=== PATIENT | female | born 1990 | race Caucasian/White ===

== ENCOUNTER → 2017-10-31 | Outpatient (CLI) | payer OTHER | END | disposition home or self-care (01) | LOC: C.LABSPEC 10:57 | PROVIDERS: ATTEND Physician Assistant | DX: N94.10 Unspecified dyspareunia (principal) ==

== ENCOUNTER → 2017-10-31 | Outpatient (CLI) | payer OTHER | END | disposition home or self-care (01) | LOC: C.PAPS 09:18 | PROVIDERS: ATTEND Physician Assistant | DX: Z12.4 Encounter for screening for malignant neoplasm of cervix (principal) ==

== ENCOUNTER 2024-05-24 03:19 | Inpatient (IN) ==
[2024-05-24] MEDS ORDERED: LIDOCAINE 1% LOCAL 20 ML VIAL INFIL PRN (06:16)
[2024-05-24] MEDS ORDERED: ACETAMINOPHEN 325 MG TAB PO PRN ×2 (06:16→23:46)
[2024-05-24] MEDS ORDERED: OXYTOCIN 30 UNITS/NSS 30 UNITS/500 ML BAG IV PRN ×2 (06:16→23:46)
--- NOTE | 2024-05-24 06:18 | History & Physical Report ---
Date of Service May 24, 2024 Assessment & Plan (1) Group B streptococcal infection during : (2) with 38 completed weeks gestation: (3) Normal labor: Plan admit, start gbs pprophylaxis, epidural now as very uncomfortable. plan arom /pit as indicated. anticipate . fetus category one. History of Present Illness Chief Complaint: painful contractions Primary Care Provider: Jhoana Montanez MD Patient is a 33yowf with iup at 38 1/7 weeks who presents to labor and delivery with painful contractions. Notes 05/28. no lof/vb. +fm. and Delivery Plans uses medical MJ occasionally for anxiety--last used 9pm last night. GBS Positive *Treat in labor OB Labs: Blood Type A Positive 10/28/23 Antibody Screen NEGATIVE 10/28/23 Hgb 10.3 g/dl (12.0-16.0) L 03/16/24 Hct 32.4 % (37.0-47.0) L 03/16/24 MCV 88.2 fL (80.0-100.0) 10/28/23 Plt Count 343 K/uL (130-400) 10/28/23 Rubella IgG Antibody Immune (Immune) 10/28/23 RPR Nonreactive (Nonreactive) 10/28/23 Hep Bs Antigen NON-REACTIVE (NON-REACTIVE) 10/28/23 Hepatitis C Ab (EIA) NON-REACTIVE (NON-REACTIVE) 10/28/23 HIV (1&2) Ag & Ab Conf NON-REACTIVE (NON-REACTIVE) 10/28/23 Glucose 1 Hr 50 gm 127 mg/dl (70-130) 03/16/24 OB Optional Labs: Chlamydia trachomatis RNA Not Detected (NotDetected) 10/28/23 Neisseria gonorrhoeae RNA Not Detected (NotDetected) 10/28/23 Labs Reviewed: Declines carrier screening--mln gbs positive Allergies Allergy/AdvReac Type Severity Reaction Status Date / Time prednisone Allergy Mild over 10 Verified 05/18/24 09:03 yrs ago - chest tight and heart racing Home Medications Medication Instructions Recorded Confirmed Type PNV no.[id number] PO 10/21/23 05/18/24 History [ Gummies] famotidine 40 mg tablet 40 mg PO HS PRN heartburn #30 tabs 03/27/24 05/18/24 Rx ferrous sulfate 325 mg (65 mg 325 mg PO DAILY 03/27/24 05/18/24 History iron) tablet,delayed release pantoprazole 40 mg tablet,delayed See Rx Instructions PO DAILY #90 03/27/24 05/18/24 Rx release tabs buspirone 10 mg tablet 10 mg PO BID #60 tabs 04/22/24 05/18/24 Rx Patient History Medical History History of chicken pox Termination of History of COVID-19 10/03/2022-home test- congestion, fatigue, body aches; resolved 07/2022- congestion , fatigue Sep 07, 2021 > home test > sore throat, congestion, headache, fatigue Anxiety no meds 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 Irregular heart beat has not seen cardio for a while > plans for follow up in future Surgical History History of dilatation and curettage x2 History of colonoscopy Hx of 03/2020 History of placement of ear tubes S/P tonsillectomy [place] teeth extracted Family History Mother Irregular heart beat Hypertension Grandmother (Maternal) Breast cancer Family/Other Ovarian cancer maternal great grandmother Father Hypertension Denies family history of Colorectal cancer Social History Smoking Status: Never smoker Second Hand Exposure: No; Do You Dip or Chew Tobacco: No; Hx Alcohol Use: Yes Alcohol type: beer, wine and hard liquor Hx Substance Use: Yes Last Used Substance: Hours (ago) Last Used Substance Other:: last used around 2100 05/23 Substance Use Type Other:: medical MJ Preferred Language: Welsh Communication Ability: Effective Visual Impairment: No Limitations Platform Software Engineer Required: No Beliefs That Will Affect Care: None marital status: Single marital status details: sil Beverly [phone]) [phone] Current Living Situation: Family and Significant Other Current Living Situation Comment: fiance and two kids current occupational status: employed current occupation: [employer] Other Information That Helps Us Care for You: No Feels Safe at Home: Yes Safety Concerns: Feels Safe At This Time Assistive Devices: None OB History Past Pregnancies Del. Date GA wks Lbr Lgth wt Sex Type del Anes Place Del Prov ? Comment 03/25/20 Aborted-Elective [employer]FIN[employer] History noncontributory Physical Exam Constitutional: WD/WN, vitals as above Gastrointestinal (Abdomen): soft, gravid, nt Psychiatric: A+Ox3, euthymic affect Genitourinary: cx--1.5/80/0 to 3.5/100/0 over observation toco--q2-4min efm--120s with mod variability, accels present, no decels Results & Data Vital Signs (Past 12 Hours) Vital Signs Temp Pulse Resp BP 05/24/24 03:51 76 133/81 05/24/24 03:34 16 05/24/24 03:25 18 05/24/24 03:25 36.7 C 18 Coding Level of Care Code None Diagnoses Group B streptococcal infection during O98.819; B95.1 with 38 completed weeks gestation Z3A.38 Normal labor O80; Z37.9
[2024-05-24] MEDS: LACTATED RINGER'S 1,000 ML IV PRN (06:28)
[2024-05-24] MEDS: PENICILLIN GK 6 MU in DEXTROSE 5% 250 ML IV STA (06:38)
[2024-05-24 07:33] LABS: Hematocrit (blood only) 39.5 % (37.0-47.0); Hemoglobin 12.8 g/dl (12.0-16.0); Mean Corpuscular Hgb Conc 32.4 g/dL (32.0-36.0); Mean Corpuscular Volume 92.5 fL (80.0-100.0); Mean Platelet Volume 11.7 fL (9.4-12.4); Platelet Count 209 K/uL (130-400); RDW Standard Deviation 50.6 fL (36.4-46.3); Red Blood Count 4.27 M/uL (4.20-5.40); White Blood Count 13.81 K/ul (4.8-10.8)
[2024-05-24 08:07] LABS: Amphetamines+Metham, Urine Neg (Neg); Barbiturates, Urine Neg (Neg); Benzodiazepine, Urine Neg (Neg); Cocaine, Urine Neg (Neg); Fentanyl, Urine Neg (Neg); MDMA (Ecstacy), Urine Neg (Neg); Marijuana, Urine Pos (Neg); Methadone, Urine Neg (Neg); Opiate, Urine Neg (Neg); Phencyclidine, Urine Neg (Neg)
--- NOTE | 2024-05-24 08:18 | Anesthesiology Consultation ---
Date of Service May 24, 2024 Assessment & Plan Chart Review Chart Review: Acceptable Risk for Surgery and Patient NOT seen in Pre Admission Testing Consults Requested none ASA ASA2 Proposed Anesthesia Anesthesia Type: Labor Epidural and CSE Risk / Benefits Reviewed With: PT / POA / Parent / Guardian, Accepts Plan and Informed Consent Obtained History Height/Weight Height: 5 ft 7 in Weight: 73.028 kg Allergies Allergy/AdvReac Type Severity Reaction Status Date / Time prednisone Allergy Mild over 10 Verified 05/18/24 09:03 yrs ago - chest tight and heart racing Medications Home Medications Medication Instructions Recorded Confirmed Last Taken PNV no.[id number] PO 10/21/23 05/18/24 05/23/24 07:00 [ Gummies] famotidine 40 mg tablet 40 mg PO HS PRN heartburn #30 tabs 03/27/24 05/24/24 05/22/24 21:00 ferrous sulfate 325 mg (65 mg 325 mg PO DAILY 03/27/24 05/24/24 05/23/24 21:00 iron) tablet,delayed release pantoprazole 40 mg tablet,delayed See Rx Instructions PO DAILY #90 03/27/24 05/24/24 05/23/24 07:00 release tabs buspirone 10 mg tablet 10 mg PO BID #60 tabs 04/22/24 05/24/24 05/23/24 21:00 Active Medications Generic Name Dose Route Start Last Admin Trade Name Freq PRN Reason Stop Dose Admin Lactated Ringer's 1,000 mls @ 125 mls/hr 05/24/24 06:16 05/24/24 06:28 Lr IV 05/26/24 06:15 999 mls/hr .Q8H PRN Administration L&D Protocol Protocol NPO Date Last Intake of Fluids: 05/24/24 Time Last Intake of Fluids: 07:00 Date Last Intake of Solids: 05/23/24 Time Last Intake of Solids: 19:00 Past Medical History Medical History History of chicken pox Termination of History of COVID-19 10/03/2022-home test- congestion, fatigue, body aches; resolved 07/2022- congestion , fatigue Sep 07, 2021 > home test > sore throat, congestion, headache, fatigue Anxiety no meds 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 Irregular heart beat has not seen cardio for a while > plans for follow up in future Exercise / Class Metabolic Activity II 4-5 Yardwork/Stairs/Walk up hill Past Family History Family History Mother Irregular heart beat Hypertension Grandmother (Maternal) Breast cancer Family/Other Ovarian cancer maternal great grandmother Father Hypertension Denies family history of Colorectal cancer Past Surgical History Surgical History History of dilatation and curettage x2 History of colonoscopy Hx of 03/2020 History of placement of ear tubes S/P tonsillectomy [place] teeth extracted Past Anesthesia History No Hx of Anesthesia Complications and No Family Hx of Anesthesia Complications History of PONV No Hx of PONV and No Hx of Motion Sickness Social History Smoking Status: Never smoker Do You Dip or Chew Tobacco: No Hx Alcohol Use: Yes Alcohol type: beer, wine and hard liquor alcohol intake frequency: a few times a month Hx Substance Use: Yes substance use type: marijuana and prescription drug Substance Use Type Other:: medical MJ Last Used Substance: Hours (ago) Last Used Substance Other:: last used around 2100 on 05/23 Physical Exam Vital Signs Last Vital Signs Temp 36.9 C 05/24/24 07:05 Pulse 87 05/24/24 08:11 Resp 20 05/24/24 07:05 BP 128/88 05/24/24 07:05 Pulse Ox 100 05/24/24 08:11 Constitutional + obese; no acute distress ENMT Mouth: no dentition abnormality Thyromental Distance: < 3.5 Finger Breadths Mallampati Class: II Neck normal visual inspection and trachea midline; neck extension not limited Respiratory normal respiratory effort Auscultation: lungs clear to auscultation bilaterally Cardiovascular Rate/Rhythm: regular rate and regular rhythm Heart Sounds: no murmur Vessels: no carotid bruit Musculoskeletal Spine: lumbar spine normal to inspection; normal cervical ROM and no pain with cervical ROM Extremities: full ROM of extremities Neurologic moves all extremities Motor/Sensory: no sensory deficit Psychiatric Orientation: alert and oriented x 3 Testing Laboratory Results 05/24/24 06:33
[2024-05-24] MEDS: ePHEDrine sulfate 50 MG/ML AMP ONE (08:38)
[2024-05-24] MEDS: fentaNYL citrate PF 100 MCG/2 ML VIAL ONE (08:39)
[2024-05-24] MEDS: LIDOCAINE 2%/EPINEPHRINE 1:200,000 20 ML PF ONE (08:39)
[2024-05-24] MEDS: BUPIVACAINE 0.25% PF 30 ML VIAL ONE (08:39)
[2024-05-24] MEDS ORDERED: BUPIVACAINE 0.25% PF 30 ML VIAL EPI PRN (08:43)
[2024-05-24] MEDS ORDERED: PROMETHAZINE 6.25 MG/50.25 ML BAG IV PRN (08:43)
[2024-05-24] MEDS ORDERED: NALBUPHINE HCL INJ 10 MG/ML AMP IV PRN (08:43)
[2024-05-24] MEDS ORDERED: NALOXONE HCL 0.4 MG/1 ML VIAL/CARP IV PRN (08:43)
[2024-05-24] MEDS ORDERED: NALOXONE HCL 1 MG in SODIUM CHLORIDE 0.9% 1,000 ML IV PRN (08:43)
[2024-05-24] MEDS ORDERED: SODIUM CHLORIDE 0.9% PF INJ 10 ML VIAL EPI PRN (08:43)
[2024-05-24] MEDS ORDERED: diphenhydrAMINE 50 MG/ML VIAL IV PRN (08:43)
[2024-05-24] MEDS ORDERED: ONDANSETRON INJ 2 MG/ML 2 ML VIAL IV PRN (08:43)
[2024-05-24] MEDS ORDERED: fentaNYL citrate PF 100 MCG/2 ML VIAL EPI PRN (08:43)
[2024-05-24] MEDS ORDERED: LIDOCAINE 2% MPF LOCAL 5 ML VIAL EPI PRN (08:43)
[2024-05-24] MEDS ORDERED: ePHEDrine sulfate 50 MG/ML AMP IV PRN (08:43)
[2024-05-24] MEDS ORDERED: ROPIVACAINE 0.5% PF 5 MG/ML 20 ML VIAL EPI PRN (08:43)
[2024-05-24] MEDS: fentANYL 2 MCG/ML BUPIVacaine 0.125%-NSS 100ML BAG ONE (08:47)
--- NOTE | 2024-05-24 09:07 | Labor Progress Brief Note ---
Date of Service May 24, 2024 Subjective comfortable after epidural Assessment & Plan (1) Normal labor: (2) with 38 completed weeks gestation: (3) Group B streptococcal infection during : Plan arom done, second dose pcn due at 10. fetus category one. anticipate . Admission and Anticipated Discharge Date Admission Date: May 24, 2024 Physical Exam Physical Exam: cx--4/100/-2 toco--q2-4min efm--130s with mod varaiability, accels to 160s, no decels arom--clear Results & Data Vital Signs (Past 12 Hours) Vital Signs Temp Pulse Resp BP Pulse Ox 05/24/24 09:02 99 05/24/24 09:02 102 H 05/24/24 09:02 94 H 116/75 05/24/24 09:01 103 H 92 05/24/24 08:57 89 99 05/24/24 08:56 86 101/64 05/24/24 08:55 91 H 92 05/24/24 08:52 99 H 99 05/24/24 08:51 86 102/65 05/24/24 08:49 99 H 103/72 05/24/24 08:47 100 05/24/24 08:47 94 H 05/24/24 08:47 90 100/69 05/24/24 08:45 90 97/60 L 05/24/24 08:43 83 104/56 L 05/24/24 08:42 74 100 05/24/24 08:41 89 99/58 L 05/24/24 08:40 20 05/24/24 08:40 20 05/24/24 08:39 93 H 102/55 L 05/24/24 08:38 102 H 133/60 05/24/24 08:37 107 H 20 91 05/24/24 08:35 96 H 82/58 L 90 05/24/24 08:33 107 H 119/67 05/24/24 08:32 111 H 97 05/24/24 08:31 92 H 118/72 05/24/24 08:27 99 H 98 05/24/24 08:22 101 H 100 05/24/24 08:18 89 149/90 H 05/24/24 08:17 93 H 99 05/24/24 08:11 87 100 05/24/24 08:06 91 H 96 10/06/24 08:05 89 92 05/24/24 08:01 88 100 05/24/24 07:56 91 H 98 05/24/24 07:52 97 H 92 05/24/24 07:51 93 H 96 05/24/24 07:46 94 H 97 05/24/24 07:41 78 100 05/24/24 07:36 80 99 05/24/24 07:35 83 92 05/24/24 07:31 88 100 05/24/24 07:26 92 H 100 05/24/24 07:20 94 H 100 05/24/24 07:15 84 97 05/24/24 07:10 89 99 05/24/24 07:05 36.9 C 83 20 128/88 100 05/24/24 07:00 91 H 100 05/24/24 06:55 85 100 05/24/24 06:50 98 H 100 05/24/24 06:46 78 135/83 05/24/24 06:45 84 100 05/24/24 03:51 76 133/81 05/24/24 03:34 16 05/24/24 03:25 18 05/24/24 03:25 36.7 C 18 Coding Level of Care Code None Diagnoses Normal labor O80; Z37.9 with 38 completed weeks gestation Z3A.38 Group B streptococcal infection during O98.819; B95.1
[2024-05-24] MEDS: PENICILLIN GK 3 MU in DEXTROSE 5% 100 ML IV PRN (10:21)
[2024-05-24] MEDS: PANTOprazole 40 MG TAB PO SCH (10:21)
[2024-05-24] MEDS: OXYTOCIN 30 UNITS/NSS 30 UNITS/500 ML BAG IV PRN (12:01)
[2024-05-24] MEDS: SODIUM CHLORIDE 0.9% PF INJ 10 ML VIAL ONE (13:29)
[2024-05-24] MEDS: fentaNYL citrate PF 100 MCG/2 ML VIAL EPI STA (13:29)
[2024-05-24] MEDS: BUPIVACAINE 0.25% PF 30 ML VIAL EPI STA (13:29)
[2024-05-24] MEDS: LIDOCAINE 2%/EPINEPHRINE 1:200,000 20 ML PF EPI STA (13:30)
[2024-05-24] MEDS: SODIUM CHLORIDE 0.9% PF INJ 10 ML VIAL EPI STA (13:30)
[2024-05-24] MEDS: CALCIUM CARBONATE 500 MG CHEWABLE TAB PO PRN (14:18)
--- NOTE | 2024-05-24 15:52 | Labor Progress Brief Note ---
Date of Service May 24, 2024 Subjective comfortable with epidural Assessment & Plan (1) Normal labor: (2) with 38 completed weeks gestation: (3) Group B streptococcal infection during : Plan has received adequate prophylaxis. iupc placed to better monitor contractions as not making rapid change but definitely made change since my last exam. fetus category two because of variables but overall very reassuring with good variabiltiy. Continue to monitor. Admission and Anticipated Discharge Date Admission Date: May 24, 2024 Physical Exam Physical Exam: cx--6-7/100/0 toco--q2-3 min, pit at 9 efm--130s wtih mod variability, onset of variables with contractions in the last hour or so iupc placed Results & Data Vital Signs (Past 12 Hours) Vital Signs Temp Pulse Resp BP Pulse Ox 05/24/24 15:48 104 H 86 L 05/24/24 15:47 101 H 99 05/24/24 15:42 91 H 84 L 05/24/24 15:39 86 107/56 L 05/24/24 15:37 95 H 99 05/24/24 15:32 89 100 05/24/24 15:29 93 H 94 05/24/24 15:27 87 100 05/24/24 15:24 18 05/24/24 15:24 36.9 C 18 05/24/24 15:22 92 H 120/75 100 05/24/24 15:19 92 H 93 05/24/24 15:17 90 100 05/24/24 15:12 87 99 05/24/24 15:07 96 H 113/82 100 05/24/24 15:02 94 H 100 05/24/24 15:00 16 05/24/24 15:00 16 05/24/24 14:57 108 H 100 05/24/24 14:52 111 H 99 05/24/24 14:47 90 100 05/24/24 14:42 97 H 98 05/24/24 14:37 93 H 122/83 100 05/24/24 14:32 92 H 94 05/24/24 14:31 101 H 91 05/24/24 14:27 96 H 94 05/24/24 14:23 96 H 114/73 05/24/24 14:22 99 H 95 05/24/24 14:17 97 H 100 05/24/24 14:12 88 98 05/24/24 14:08 100 H 118/77 05/24/24 14:07 90 99 05/24/24 14:02 95 H 99 05/24/24 14:00 20 05/24/24 14:00 20 05/24/24 13:57 92 H 99 05/24/24 13:52 87 118/82 100 05/24/24 13:47 95 H 96 05/24/24 13:42 91 H 98 05/24/24 13:37 84 110/67 94 05/24/24 13:32 89 96 05/24/24 13:30 18 05/24/24 13:30 18 05/24/24 13:27 90 96 05/24/24 13:24 91 H 115/75 05/24/24 13:22 85 98 05/24/24 13:17 92 H 98 05/24/24 13:12 91 H 96 05/24/24 13:07 83 100 05/24/24 13:02 89 100 05/24/24 13:00 93 H 92 05/24/24 12:57 96 H 100 05/24/24 12:54 88 113/72 05/24/24 12:52 90 100 05/24/24 12:47 91 H 100 05/24/24 12:42 99 H 89 L 05/24/24 12:40 99 H 90 05/24/24 12:39 92 H 113/76 05/24/24 12:37 111 H 91 05/24/24 12:34 93 H 93 05/24/24 12:32 98 H 100 05/24/24 12:30 18 05/24/24 12:30 18 05/24/24 12:28 87 93 05/24/24 12:27 87 94 05/24/24 12:23 92 H 114/69 05/24/24 12:22 92 H 100 05/24/24 12:17 93 H 98 05/24/24 12:15 97 H 92 05/24/24 12:12 85 100 05/24/24 12:07 91 H 117/70 97 05/24/24 12:02 90 98 05/24/24 12:01 96 H 91 05/24/24 12:00 18 05/24/24 12:00 36.7 C 18 05/24/24 11:57 88 100 10/06/24 11:54 89 91 05/24/24 11:52 89 115/73 100 05/24/24 11:48 84 90 05/24/24 11:47 86 100 05/24/24 11:42 90 100 05/24/24 11:40 84 88 L 05/24/24 11:39 89 111/68 05/24/24 11:37 91 H 100 05/24/24 11:32 91 H 100 05/24/24 11:30 18 05/24/24 11:30 18 05/24/24 11:27 93 H 99 05/24/24 11:23 99 H 05/24/24 11:23 103 H 108/76 93 05/24/24 11:22 93 H 100 05/24/24 11:17 102 H 100 05/24/24 11:12 95 H 100 05/24/24 11:07 98 05/24/24 11:07 91 H 05/24/24 11:07 93 H 115/63 05/24/24 11:02 93 H 100 05/24/24 11:00 16 05/24/24 11:00 16 05/24/24 10:57 92 H 99 05/24/24 10:53 93 H 104/57 L 05/24/24 10:52 87 100 05/24/24 10:47 93 H 100 05/24/24 10:46 100 H 90 05/24/24 10:42 87 100 05/24/24 10:37 98 05/24/24 10:37 84 05/24/24 10:37 84 97/65 L 05/24/24 10:32 89 99 05/24/24 10:27 87 100 05/24/24 10:25 101 H 92 05/24/24 10:23 86 109/71 05/24/24 10:22 85 99 05/24/24 10:17 88 100 05/24/24 10:12 88 99 05/24/24 10:09 86 122/74 05/24/24 10:07 89 100 05/24/24 10:05 89 91 05/24/24 10:02 86 99 05/24/24 10:00 18 05/24/24 10:00 18 05/24/24 09:57 87 100 05/24/24 09:52 88 112/83 97 05/24/24 09:47 90 99 05/24/24 09:44 89 93 05/24/24 09:42 84 99 05/24/24 09:37 85 121/81 100 05/24/24 09:32 87 99 05/24/24 09:30 18 05/24/24 09:30 18 05/24/24 09:27 84 99 05/24/24 09:23 95 H 113/82 05/24/24 09:22 94 H 100 05/24/24 09:19 93 H 94 05/24/24 09:17 87 98 05/24/24 09:14 97 H 89 L 05/24/24 09:12 89 98 05/24/24 09:08 36.9 C 05/24/24 09:07 100 H 110/74 100 05/24/24 09:02 99 05/24/24 09:02 102 H 05/24/24 09:02 94 H 116/75 05/24/24 09:01 103 H 92 05/24/24 09:00 18 05/24/24 09:00 18 05/24/24 08:57 89 99 05/24/24 08:56 86 101/64 05/24/24 08:55 91 H 92 05/24/24 08:52 99 H 99 05/24/24 08:51 86 102/65 05/24/24 08:49 99 H 103/72 05/24/24 08:47 100 05/24/24 08:47 94 H 05/24/24 08:47 90 100/69 05/24/24 08:45 90 97/60 L 05/24/24 08:43 83 104/56 L 05/24/24 08:42 74 100 05/24/24 08:41 89 99/58 L 05/24/24 08:40 20 05/24/24 08:40 20 05/24/24 08:39 93 H 102/55 L 05/24/24 08:38 102 H 133/60 05/24/24 08:37 107 H 20 91 05/24/24 08:35 96 H 82/58 L 90 05/24/24 08:33 107 H 119/67 05/24/24 08:32 111 H 97 05/24/24 08:31 92 H 118/72 05/24/24 08:27 99 H 98 05/24/24 08:22 101 H 100 05/24/24 08:18 89 149/90 H 05/24/24 08:17 93 H 99 05/24/24 08:11 87 100 05/24/24 08:06 91 H 96 05/24/24 08:05 89 92 05/24/24 08:01 88 100 05/24/24 07:56 91 H 98 05/24/24 07:52 97 H 92 05/24/24 07:51 93 H 96 05/24/24 07:46 94 H 97 05/24/24 07:41 78 100 05/24/24 07:36 80 99 05/24/24 07:35 83 92 05/24/24 07:31 88 100 05/24/24 07:26 92 H 100 05/24/24 07:20 94 H 100 05/24/24 07:15 84 97 05/24/24 07:10 89 99 05/24/24 07:05 36.9 C 83 20 128/88 100 05/24/24 07:00 91 H 100 05/24/24 06:55 85 100 05/24/24 06:50 98 H 100 05/24/24 06:46 78 135/83 05/24/24 06:45 84 100 05/24/24 03:51 76 133/81 Coding Level of Care Code None Diagnoses Normal labor O80; Z37.9 with 38 completed weeks gestation Z3A.38 Group B streptococcal infection during O98.819; B95.1
[2024-05-24 17:02] VITALS: RESP 18
--- NOTE | 2024-05-24 17:07 | Labor Progress Brief Note ---
Date of Service May 24, 2024 Subjective comoforable, noting some pressure Assessment & Plan (1) Normal labor: (2) with 38 completed weeks gestation: (3) Group B streptococcal infection during : Plan making progress despite an inadequate contration pattern. Will start an amnio infusion to see if can get variables to resolve, but fetus is overall reassuring with good return to baseline and good variability. Continue to follow closely and anticipate . Admission and Anticipated Discharge Date Admission Date: May 24, 2024 Physical Exam Physical Exam: cx--8-9/100/0 toco--irregular opattern, ctx, not adequate, but making change, some spacing, pit at 11 efm--130s with mod variablity, small accels, +scalp stim, variables still with contractions Results & Data Vital Signs (Past 12 Hours) Vital Signs Temp Pulse Resp BP Pulse Ox 05/24/24 17:02 88 99 05/24/24 17:00 18 05/24/24 17:00 18 05/24/24 16:57 90 97 05/24/24 16:52 90 110/69 96 05/24/24 16:47 88 97 05/24/24 16:42 96 H 100 05/24/24 16:37 108 H 112/77 100 05/24/24 16:32 100 H 92 05/24/24 16:30 20 05/24/24 16:30 36.7 C 20 05/24/24 16:27 91 H 99 05/24/24 16:22 88 102/62 98 05/24/24 16:17 85 98 05/24/24 16:12 89 100 05/24/24 16:09 98 H 91 05/24/24 16:07 97 H 105/65 99 05/24/24 16:03 91 H 93 05/24/24 16:02 88 100 05/24/24 16:00 18 05/24/24 16:00 18 05/24/24 15:57 86 100 05/24/24 15:53 90 104/65 91 05/24/24 15:52 92 H 98 05/24/24 15:48 104 H 86 L 05/24/24 15:47 101 H 99 05/24/24 15:42 91 H 84 L 05/24/24 15:39 86 107/56 L 05/24/24 15:37 95 H 99 05/24/24 15:32 89 100 05/24/24 15:30 18 05/24/24 15:30 18 05/24/24 15:29 93 H 94 05/24/24 15:27 87 100 05/24/24 15:24 18 05/24/24 15:24 36.9 C 18 05/24/24 15:22 92 H 120/75 100 05/24/24 15:19 92 H 93 05/24/24 15:17 90 100 05/24/24 15:12 87 99 05/24/24 15:07 96 H 113/82 100 05/24/24 15:02 94 H 100 05/24/24 15:00 16 05/24/24 15:00 16 05/24/24 14:57 108 H 100 05/24/24 14:52 111 H 99 05/24/24 14:47 90 100 05/24/24 14:42 97 H 98 05/24/24 14:37 93 H 122/83 100 05/24/24 14:32 92 H 94 05/24/24 14:31 101 H 91 05/24/24 14:27 96 H 94 05/24/24 14:23 96 H 114/73 05/24/24 14:22 99 H 95 05/24/24 14:17 97 H 100 05/24/24 14:12 88 98 05/24/24 14:08 100 H 118/77 05/24/24 14:07 90 99 05/24/24 14:02 95 H 99 05/24/24 14:00 20 05/24/24 14:00 20 05/24/24 13:57 92 H 99 05/24/24 13:52 87 118/82 100 05/24/24 13:47 95 H 96 05/24/24 13:42 91 H 98 05/24/24 13:37 84 110/67 94 05/24/24 13:32 89 96 05/24/24 13:30 18 05/24/24 13:30 18 05/24/24 13:27 90 96 05/24/24 13:24 91 H 115/75 05/24/24 13:22 85 98 05/24/24 13:17 92 H 98 05/24/24 13:12 91 H 96 05/24/24 13:07 83 100 10/06/24 13:02 89 100 05/24/24 13:00 93 H 92 05/24/24 12:57 96 H 100 05/24/24 12:54 88 113/72 05/24/24 12:52 90 100 05/24/24 12:47 91 H 100 05/24/24 12:42 99 H 89 L 05/24/24 12:40 99 H 90 05/24/24 12:39 92 H 113/76 05/24/24 12:37 111 H 91 05/24/24 12:34 93 H 93 05/24/24 12:32 98 H 100 05/24/24 12:30 18 05/24/24 12:30 18 05/24/24 12:28 87 93 05/24/24 12:27 87 94 05/24/24 12:23 92 H 114/69 05/24/24 12:22 92 H 100 05/24/24 12:17 93 H 98 05/24/24 12:15 97 H 92 05/24/24 12:12 85 100 05/24/24 12:07 91 H 117/70 97 05/24/24 12:02 90 98 05/24/24 12:01 96 H 91 05/24/24 12:00 18 05/24/24 12:00 36.7 C 18 05/24/24 11:57 88 100 05/24/24 11:54 89 91 05/24/24 11:52 89 115/73 100 05/24/24 11:48 84 90 05/24/24 11:47 86 100 05/24/24 11:42 90 100 05/24/24 11:40 84 88 L 05/24/24 11:39 89 111/68 05/24/24 11:37 91 H 100 05/24/24 11:32 91 H 100 05/24/24 11:30 18 05/24/24 11:30 18 05/24/24 11:27 93 H 99 05/24/24 11:23 99 H 05/24/24 11:23 103 H 108/76 93 05/24/24 11:22 93 H 100 05/24/24 11:17 102 H 100 05/24/24 11:12 95 H 100 05/24/24 11:07 98 05/24/24 11:07 91 H 05/24/24 11:07 93 H 115/63 05/24/24 11:02 93 H 100 05/24/24 11:00 16 05/24/24 11:00 16 05/24/24 10:57 92 H 99 05/24/24 10:53 93 H 104/57 L 05/24/24 10:52 87 100 05/24/24 10:47 93 H 100 05/24/24 10:46 100 H 90 05/24/24 10:42 87 100 05/24/24 10:37 98 05/24/24 10:37 84 05/24/24 10:37 84 97/65 L 05/24/24 10:32 89 99 05/24/24 10:27 87 100 05/24/24 10:25 101 H 92 05/24/24 10:23 86 109/71 05/24/24 10:22 85 99 05/24/24 10:17 88 100 05/24/24 10:12 88 99 05/24/24 10:09 86 122/74 05/24/24 10:07 89 100 05/24/24 10:05 89 91 05/24/24 10:02 86 99 05/24/24 10:00 18 05/24/24 10:00 18 05/24/24 09:57 87 100 05/24/24 09:52 88 112/83 97 05/24/24 09:47 90 99 05/24/24 09:44 89 93 05/24/24 09:42 84 99 05/24/24 09:37 85 121/81 100 05/24/24 09:32 87 99 05/24/24 09:30 18 05/24/24 09:30 18 05/24/24 09:27 84 99 05/24/24 09:23 95 H 113/82 05/24/24 09:22 94 H 100 05/24/24 09:19 93 H 94 05/24/24 09:17 87 98 05/24/24 09:14 97 H 89 L 05/24/24 09:12 89 98 05/24/24 09:08 36.9 C 05/24/24 09:07 100 H 110/74 100 05/24/24 09:02 99 05/24/24 09:02 102 H 05/24/24 09:02 94 H 116/75 10/06/24 09:01 103 H 92 05/24/24 09:00 18 05/24/24 09:00 18 05/24/24 08:57 89 99 05/24/24 08:56 86 101/64 05/24/24 08:55 91 H 92 05/24/24 08:52 99 H 99 05/24/24 08:51 86 102/65 05/24/24 08:49 99 H 103/72 05/24/24 08:47 100 05/24/24 08:47 94 H 05/24/24 08:47 90 100/69 05/24/24 08:45 90 97/60 L 05/24/24 08:43 83 104/56 L 05/24/24 08:42 74 100 05/24/24 08:41 89 99/58 L 05/24/24 08:40 20 05/24/24 08:40 20 05/24/24 08:39 93 H 102/55 L 05/24/24 08:38 102 H 133/60 05/24/24 08:37 107 H 20 91 05/24/24 08:35 96 H 82/58 L 90 05/24/24 08:33 107 H 119/67 05/24/24 08:32 111 H 97 05/24/24 08:31 92 H 118/72 05/24/24 08:27 99 H 98 05/24/24 08:22 101 H 100 05/24/24 08:18 89 149/90 H 05/24/24 08:17 93 H 99 05/24/24 08:11 87 100 05/24/24 08:06 91 H 96 05/24/24 08:05 89 92 05/24/24 08:01 88 100 05/24/24 07:56 91 H 98 05/24/24 07:52 97 H 92 05/24/24 07:51 93 H 96 05/24/24 07:46 94 H 97 05/24/24 07:41 78 100 05/24/24 07:36 80 99 05/24/24 07:35 83 92 05/24/24 07:31 88 100 05/24/24 07:26 92 H 100 05/24/24 07:20 94 H 100 05/24/24 07:15 84 97 05/24/24 07:10 89 99 10/06/24 07:05 36.9 C 83 20 128/88 100 05/24/24 07:00 91 H 100 05/24/24 06:55 85 100 05/24/24 06:50 98 H 100 05/24/24 06:46 78 135/83 05/24/24 06:45 84 100 Coding Level of Care Code None Diagnoses Normal labor O80; Z37.9 with 38 completed weeks gestation Z3A.38 Group B streptococcal infection during O98.819; B95.1
[2024-05-24] MEDS: fentANYL 2 MCG/ML BUPIVacaine 0.125%-NSS 100ML BAG EPI PRN (17:43)
--- NOTE | 2024-05-24 18:51 | Labor Progress Brief Note ---
Date of Service May 24, 2024 Subjective comfortable, some pressure Assessment & Plan (1) Normal labor: Plan labor down for an hour then start pushing. again, amnioinfusion decreasing variables but still happening but more occasionally. fetus overall reassuring. anticipate . Admission and Anticipated Discharge Date Admission Date: May 24, 2024 Physical Exam Physical Exam: cx--ant lip/0 toco--q 2-4min, not adequate but making change efm--130s with mod variability, small accels present, less variables with the amnioinfusion. happening occasionally Results & Data Vital Signs (Past 12 Hours) Vital Signs Temp Pulse Resp BP Pulse Ox 05/24/24 18:47 94 H 100 05/24/24 18:44 94 H 88 L 05/24/24 18:42 88 100 05/24/24 18:37 91 H 122/88 100 05/24/24 18:36 93 H 93 05/24/24 18:32 88 94 05/24/24 18:27 111 H 93 05/24/24 18:26 94 H 92 05/24/24 18:23 93 H 126/71 05/24/24 18:22 84 98 05/24/24 18:17 87 99 05/24/24 18:13 91 H 92 05/24/24 18:12 86 100 05/24/24 18:08 88 118/80 05/24/24 18:07 90 100 05/24/24 18:06 96 H 90 05/24/24 18:02 113 H 97 05/24/24 18:00 18 05/24/24 18:00 18 05/24/24 17:57 89 100 05/24/24 17:52 89 115/64 100 05/24/24 17:47 90 77 L 05/24/24 17:42 96 H 100 05/24/24 17:37 100 05/24/24 17:37 89 05/24/24 17:37 90 102/61 05/24/24 17:32 89 100 05/24/24 17:30 18 05/24/24 17:30 18 05/24/24 17:27 89 100 05/24/24 17:26 87 90 05/24/24 17:22 92 H 113/62 100 05/24/24 17:17 87 100 05/24/24 17:15 36.6 C 89 90 05/24/24 17:12 102 H 104/62 98 05/24/24 17:07 84 100 05/24/24 17:02 88 99 05/24/24 17:00 18 05/24/24 17:00 18 05/24/24 16:57 90 97 05/24/24 16:52 90 110/69 96 05/24/24 16:47 88 97 05/24/24 16:42 96 H 100 05/24/24 16:37 108 H 112/77 100 05/24/24 16:32 100 H 92 05/24/24 16:30 20 05/24/24 16:30 36.7 C 20 05/24/24 16:27 91 H 99 05/24/24 16:22 88 102/62 98 05/24/24 16:17 85 98 05/24/24 16:12 89 100 05/24/24 16:09 98 H 91 05/24/24 16:07 97 H 105/65 99 05/24/24 16:03 91 H 93 05/24/24 16:02 88 100 05/24/24 16:00 18 05/24/24 16:00 18 05/24/24 15:57 86 100 05/24/24 15:53 90 104/65 91 05/24/24 15:52 92 H 98 05/24/24 15:48 104 H 86 L 05/24/24 15:47 101 H 99 05/24/24 15:42 91 H 84 L 05/24/24 15:39 86 107/56 L 05/24/24 15:37 95 H 99 05/24/24 15:32 89 100 05/24/24 15:30 18 05/24/24 15:30 18 05/24/24 15:29 93 H 94 05/24/24 15:27 87 100 05/24/24 15:24 18 05/24/24 15:24 36.9 C 18 05/24/24 15:22 92 H 120/75 100 05/24/24 15:19 92 H 93 05/24/24 15:17 90 100 05/24/24 15:12 87 99 05/24/24 15:07 96 H 113/82 100 05/24/24 15:02 94 H 100 05/24/24 15:00 16 05/24/24 15:00 16 05/24/24 14:57 108 H 100 05/24/24 14:52 111 H 99 05/24/24 14:47 90 100 05/24/24 14:42 97 H 98 05/24/24 14:37 93 H 122/83 100 05/24/24 14:32 92 H 94 05/24/24 14:31 101 H 91 05/24/24 14:27 96 H 94 05/24/24 14:23 96 H 114/73 05/24/24 14:22 99 H 95 05/24/24 14:17 97 H 100 05/24/24 14:12 88 98 05/24/24 14:08 100 H 118/77 05/24/24 14:07 90 99 05/24/24 14:02 95 H 99 05/24/24 14:00 20 05/24/24 14:00 20 05/24/24 13:57 92 H 99 05/24/24 13:52 87 118/82 100 05/24/24 13:47 95 H 96 05/24/24 13:42 91 H 98 05/24/24 13:37 84 110/67 94 05/24/24 13:32 89 96 05/24/24 13:30 18 05/24/24 13:30 18 05/24/24 13:27 90 96 05/24/24 13:24 91 H 115/75 05/24/24 13:22 85 98 05/24/24 13:17 92 H 98 05/24/24 13:12 91 H 96 05/24/24 13:07 83 100 05/24/24 13:02 89 100 05/24/24 13:00 93 H 92 05/24/24 12:57 96 H 100 05/24/24 12:54 88 113/72 05/24/24 12:52 90 100 05/24/24 12:47 91 H 100 05/24/24 12:42 99 H 89 L 05/24/24 12:40 99 H 90 05/24/24 12:39 92 H 113/76 05/24/24 12:37 111 H 91 05/24/24 12:34 93 H 93 05/24/24 12:32 98 H 100 05/24/24 12:30 18 05/24/24 12:30 18 05/24/24 12:28 87 93 05/24/24 12:27 87 94 05/24/24 12:23 92 H 114/69 05/24/24 12:22 92 H 100 05/24/24 12:17 93 H 98 05/24/24 12:15 97 H 92 05/24/24 12:12 85 100 05/24/24 12:07 91 H 117/70 97 05/24/24 12:02 90 98 05/24/24 12:01 96 H 91 05/24/24 12:00 18 05/24/24 12:00 36.7 C 18 05/24/24 11:57 88 100 05/24/24 11:54 89 91 05/24/24 11:52 89 115/73 100 05/24/24 11:48 84 90 05/24/24 11:47 86 100 05/24/24 11:42 90 100 05/24/24 11:40 84 88 L 05/24/24 11:39 89 111/68 05/24/24 11:37 91 H 100 05/24/24 11:32 91 H 100 05/24/24 11:30 18 05/24/24 11:30 18 05/24/24 11:27 93 H 99 05/24/24 11:23 99 H 05/24/24 11:23 103 H 108/76 93 05/24/24 11:22 93 H 100 05/24/24 11:17 102 H 100 05/24/24 11:12 95 H 100 05/24/24 11:07 98 05/24/24 11:07 91 H 05/24/24 11:07 93 H 115/63 05/24/24 11:02 93 H 100 05/24/24 11:00 16 05/24/24 11:00 16 05/24/24 10:57 92 H 99 05/24/24 10:53 93 H 104/57 L 05/24/24 10:52 87 100 05/24/24 10:47 93 H 100 05/24/24 10:46 100 H 90 05/24/24 10:42 87 100 05/24/24 10:37 98 05/24/24 10:37 84 05/24/24 10:37 84 97/65 L 05/24/24 10:32 89 99 05/24/24 10:27 87 100 05/24/24 10:25 101 H 92 05/24/24 10:23 86 109/71 05/24/24 10:22 85 99 05/24/24 10:17 88 100 05/24/24 10:12 88 99 05/24/24 10:09 86 122/74 05/24/24 10:07 89 100 05/24/24 10:05 89 91 05/24/24 10:02 86 99 05/24/24 10:00 18 05/24/24 10:00 18 05/24/24 09:57 87 100 05/24/24 09:52 88 112/83 97 05/24/24 09:47 90 99 05/24/24 09:44 89 93 05/24/24 09:42 84 99 05/24/24 09:37 85 121/81 100 05/24/24 09:32 87 99 05/24/24 09:30 18 05/24/24 09:30 18 05/24/24 09:27 84 99 05/24/24 09:23 95 H 113/82 05/24/24 09:22 94 H 100 05/24/24 09:19 93 H 94 05/24/24 09:17 87 98 05/24/24 09:14 97 H 89 L 05/24/24 09:12 89 98 05/24/24 09:08 36.9 C 05/24/24 09:07 100 H 110/74 100 05/24/24 09:02 99 05/24/24 09:02 102 H 05/24/24 09:02 94 H 116/75 05/24/24 09:01 103 H 92 05/24/24 09:00 18 05/24/24 09:00 18 05/24/24 08:57 89 99 05/24/24 08:56 86 101/64 05/24/24 08:55 91 H 92 05/24/24 08:52 99 H 99 05/24/24 08:51 86 102/65 05/24/24 08:49 99 H 103/72 05/24/24 08:47 100 05/24/24 08:47 94 H 05/24/24 08:47 90 100/69 05/24/24 08:45 90 97/60 L 05/24/24 08:43 83 104/56 L 05/24/24 08:42 74 100 05/24/24 08:41 89 99/58 L 05/24/24 08:40 20 05/24/24 08:40 20 05/24/24 08:39 93 H 102/55 L 05/24/24 08:38 102 H 133/60 05/24/24 08:37 107 H 20 91 05/24/24 08:35 96 H 82/58 L 90 05/24/24 08:33 107 H 119/67 05/24/24 08:32 111 H 97 05/24/24 08:31 92 H 118/72 05/24/24 08:27 99 H 98 05/24/24 08:22 101 H 100 05/24/24 08:18 89 149/90 H 05/24/24 08:17 93 H 99 05/24/24 08:11 87 100 05/24/24 08:06 91 H 96 05/24/24 08:05 89 92 05/24/24 08:01 88 100 05/24/24 07:56 91 H 98 05/24/24 07:52 97 H 92 05/24/24 07:51 93 H 96 05/24/24 07:46 94 H 97 05/24/24 07:41 78 100 05/24/24 07:36 80 99 05/24/24 07:35 83 92 05/24/24 07:31 88 100 05/24/24 07:26 92 H 100 05/24/24 07:20 94 H 100 05/24/24 07:15 84 97 05/24/24 07:10 89 99 05/24/24 07:05 36.9 C 83 20 128/88 100 05/24/24 07:00 91 H 100 05/24/24 06:55 85 100 05/24/24 06:50 98 H 100 Coding Level of Care Code None Diagnoses Normal labor O80; Z37.9
--- NOTE | 2024-05-24 20:01 | Labor Progress Brief Note ---
Date of Service May 24, 2024 Subjective more pressure Assessment & Plan (1) Normal labor: Plan begin stage 2. reassuring fetus. anticipate . Admission and Anticipated Discharge Date Admission Date: May 24, 2024 Physical Exam Physical Exam: cx--c/c/+2 toco--q2-4min efm--130s wtih mod variability, accels present, variables with some contractions. Results & Data Vital Signs (Past 12 Hours) Vital Signs Temp Pulse Resp BP Pulse Ox 05/24/24 19:57 100 H 98 05/24/24 19:52 87 105/74 97 05/24/24 19:50 87 94 05/24/24 19:47 88 97 05/24/24 19:42 94 H 96 05/24/24 19:38 86 120/78 05/24/24 19:37 88 98 05/24/24 19:32 90 97 05/24/24 19:27 94 H 97 05/24/24 19:22 90 122/81 97 05/24/24 19:17 91 H 98 05/24/24 19:12 36.8 C 18 05/24/24 19:12 90 98 05/24/24 19:08 87 127/83 05/24/24 19:07 87 99 05/24/24 19:06 86 128/85 05/24/24 19:02 93 H 99 05/24/24 19:00 18 05/24/24 19:00 18 05/24/24 18:57 87 100 05/24/24 18:56 95 H 89 L 05/24/24 18:52 87 127/84 100 05/24/24 18:47 94 H 100 05/24/24 18:44 94 H 88 L 05/24/24 18:42 88 100 05/24/24 18:37 91 H 122/88 100 05/24/24 18:36 93 H 93 05/24/24 18:32 88 94 05/24/24 18:27 111 H 93 05/24/24 18:26 94 H 92 05/24/24 18:23 93 H 126/71 05/24/24 18:22 84 98 05/24/24 18:17 87 99 05/24/24 18:13 91 H 92 05/24/24 18:12 86 100 05/24/24 18:08 88 118/80 05/24/24 18:07 90 100 05/24/24 18:06 96 H 90 05/24/24 18:02 113 H 97 05/24/24 18:00 18 05/24/24 18:00 18 05/24/24 17:57 89 100 05/24/24 17:52 89 115/64 100 05/24/24 17:47 90 77 L 05/24/24 17:42 96 H 100 05/24/24 17:37 100 05/24/24 17:37 89 05/24/24 17:37 90 102/61 05/24/24 17:32 89 100 05/24/24 17:30 18 05/24/24 17:30 18 05/24/24 17:27 89 100 05/24/24 17:26 87 90 05/24/24 17:22 92 H 113/62 100 05/24/24 17:17 87 100 05/24/24 17:15 36.6 C 89 90 05/24/24 17:12 102 H 104/62 98 05/24/24 17:07 84 100 05/24/24 17:02 88 99 05/24/24 17:00 18 05/24/24 17:00 18 05/24/24 16:57 90 97 05/24/24 16:52 90 110/69 96 05/24/24 16:47 88 97 05/24/24 16:42 96 H 100 05/24/24 16:37 108 H 112/77 100 05/24/24 16:32 100 H 92 05/24/24 16:30 20 05/24/24 16:30 36.7 C 20 05/24/24 16:27 91 H 99 05/24/24 16:22 88 102/62 98 05/24/24 16:17 85 98 05/24/24 16:12 89 100 05/24/24 16:09 98 H 91 05/24/24 16:07 97 H 105/65 99 05/24/24 16:03 91 H 93 05/24/24 16:02 88 100 05/24/24 16:00 18 05/24/24 16:00 18 05/24/24 15:57 86 100 05/24/24 15:53 90 104/65 91 05/24/24 15:52 92 H 98 05/24/24 15:48 104 H 86 L 05/24/24 15:47 101 H 99 05/24/24 15:42 91 H 84 L 05/24/24 15:39 86 107/56 L 05/24/24 15:37 95 H 99 05/24/24 15:32 89 100 05/24/24 15:30 18 05/24/24 15:30 18 05/24/24 15:29 93 H 94 05/24/24 15:27 87 100 05/24/24 15:24 18 05/24/24 15:24 36.9 C 18 05/24/24 15:22 92 H 120/75 100 05/24/24 15:19 92 H 93 05/24/24 15:17 90 100 05/24/24 15:12 87 99 05/24/24 15:07 96 H 113/82 100 05/24/24 15:02 94 H 100 05/24/24 15:00 16 05/24/24 15:00 16 05/24/24 14:57 108 H 100 05/24/24 14:52 111 H 99 05/24/24 14:47 90 100 05/24/24 14:42 97 H 98 05/24/24 14:37 93 H 122/83 100 05/24/24 14:32 92 H 94 05/24/24 14:31 101 H 91 05/24/24 14:27 96 H 94 05/24/24 14:23 96 H 114/73 05/24/24 14:22 99 H 95 05/24/24 14:17 97 H 100 05/24/24 14:12 88 98 05/24/24 14:08 100 H 118/77 05/24/24 14:07 90 99 05/24/24 14:02 95 H 99 05/24/24 14:00 20 05/24/24 14:00 20 05/24/24 13:57 92 H 99 05/24/24 13:52 87 118/82 100 05/24/24 13:47 95 H 96 05/24/24 13:42 91 H 98 05/24/24 13:37 84 110/67 94 05/24/24 13:32 89 96 05/24/24 13:30 18 05/24/24 13:30 18 05/24/24 13:27 90 96 05/24/24 13:24 91 H 115/75 05/24/24 13:22 85 98 05/24/24 13:17 92 H 98 05/24/24 13:12 91 H 96 05/24/24 13:07 83 100 05/24/24 13:02 89 100 05/24/24 13:00 93 H 92 05/24/24 12:57 96 H 100 05/24/24 12:54 88 113/72 05/24/24 12:52 90 100 05/24/24 12:47 91 H 100 05/24/24 12:42 99 H 89 L 05/24/24 12:40 99 H 90 05/24/24 12:39 92 H 113/76 05/24/24 12:37 111 H 91 05/24/24 12:34 93 H 93 05/24/24 12:32 98 H 100 05/24/24 12:30 18 05/24/24 12:30 18 05/24/24 12:28 87 93 05/24/24 12:27 87 94 05/24/24 12:23 92 H 114/69 05/24/24 12:22 92 H 100 05/24/24 12:17 93 H 98 05/24/24 12:15 97 H 92 05/24/24 12:12 85 100 05/24/24 12:07 91 H 117/70 97 05/24/24 12:02 90 98 05/24/24 12:01 96 H 91 05/24/24 12:00 18 05/24/24 12:00 36.7 C 18 05/24/24 11:57 88 100 05/24/24 11:54 89 91 05/24/24 11:52 89 115/73 100 05/24/24 11:48 84 90 05/24/24 11:47 86 100 05/24/24 11:42 90 100 05/24/24 11:40 84 88 L 05/24/24 11:39 89 111/68 05/24/24 11:37 91 H 100 05/24/24 11:32 91 H 100 05/24/24 11:30 18 05/24/24 11:30 18 05/24/24 11:27 93 H 99 05/24/24 11:23 99 H 05/24/24 11:23 103 H 108/76 93 05/24/24 11:22 93 H 100 05/24/24 11:17 102 H 100 05/24/24 11:12 95 H 100 05/24/24 11:07 98 05/24/24 11:07 91 H 05/24/24 11:07 93 H 115/63 05/24/24 11:02 93 H 100 05/24/24 11:00 16 05/24/24 11:00 16 05/24/24 10:57 92 H 99 05/24/24 10:53 93 H 104/57 L 05/24/24 10:52 87 100 05/24/24 10:47 93 H 100 05/24/24 10:46 100 H 90 05/24/24 10:42 87 100 05/24/24 10:37 98 05/24/24 10:37 84 05/24/24 10:37 84 97/65 L 05/24/24 10:32 89 99 05/24/24 10:27 87 100 05/24/24 10:25 101 H 92 05/24/24 10:23 86 109/71 05/24/24 10:22 85 99 05/24/24 10:17 88 100 05/24/24 10:12 88 99 05/24/24 10:09 86 122/74 05/24/24 10:07 89 100 05/24/24 10:05 89 91 05/24/24 10:02 86 99 05/24/24 10:00 18 05/24/24 10:00 18 05/24/24 09:57 87 100 05/24/24 09:52 88 112/83 97 05/24/24 09:47 90 99 05/24/24 09:44 89 93 05/24/24 09:42 84 99 05/24/24 09:37 85 121/81 100 05/24/24 09:32 87 99 05/24/24 09:30 18 05/24/24 09:30 18 05/24/24 09:27 84 99 05/24/24 09:23 95 H 113/82 05/24/24 09:22 94 H 100 05/24/24 09:19 93 H 94 05/24/24 09:17 87 98 05/24/24 09:14 97 H 89 L 05/24/24 09:12 89 98 05/24/24 09:08 36.9 C 05/24/24 09:07 100 H 110/74 100 05/24/24 09:02 99 05/24/24 09:02 102 H 05/24/24 09:02 94 H 116/75 05/24/24 09:01 103 H 92 05/24/24 09:00 18 05/24/24 09:00 18 05/24/24 08:57 89 99 05/24/24 08:56 86 101/64 05/24/24 08:55 91 H 92 05/24/24 08:52 99 H 99 05/24/24 08:51 86 102/65 05/24/24 08:49 99 H 103/72 05/24/24 08:47 100 05/24/24 08:47 94 H 05/24/24 08:47 90 100/69 05/24/24 08:45 90 97/60 L 05/24/24 08:43 83 104/56 L 05/24/24 08:42 74 100 05/24/24 08:41 89 99/58 L 05/24/24 08:40 20 05/24/24 08:40 20 05/24/24 08:39 93 H 102/55 L 05/24/24 08:38 102 H 133/60 05/24/24 08:37 107 H 20 91 05/24/24 08:35 96 H 82/58 L 90 05/24/24 08:33 107 H 119/67 05/24/24 08:32 111 H 97 05/24/24 08:31 92 H 118/72 05/24/24 08:27 99 H 98 05/24/24 08:22 101 H 100 05/24/24 08:18 89 149/90 H 05/24/24 08:17 93 H 99 05/24/24 08:11 87 100 05/24/24 08:06 91 H 96 05/24/24 08:05 89 92 05/24/24 08:01 88 100 Coding Level of Care Code None Diagnoses Normal labor O80; Z37.9
--- NOTE | 2024-05-24 22:12 | Delivery Summary ---
Vaginal Delivery Summary Date of Service May 24, 2024 Vaginal Delivery Summary and 2nd Degree LAC (with bilateral labial tears) Pre-operative Diagnosis: at 38 weeks labor gbs positive Post-operative Diagnosis: same Procedure: epidural arom pitocin augmentation iupc amnioinfusion second degree laceration and bilateral labial laceration repairs QBL: 220cc Anesthesia: epidural Procedure: The patient presented to labor and delivery in early active labor. She progressed, was admitted and given an epidural. She then required arom and pitocin augmentation. The fetus had deep variables that responded positvely to an amnioinfusion. She became c/c/+2. The patient pushed for 1.45 hrs to deliver a viable male infant in sneha position. The nose and mouth were bulb suctioned on the perineum and the rest of the infant was then delivered without difficulty. The baby was vigorous. The nose and mouth were again bulb suctioned and the infant was placed in the maternal abdomen for drying and attention. Cord was clamped and cut at one minute of life. Cord blood and segment obtained. Placenta delivered spontaneous, intact with a three vessel cord. Cervix/sulci/rectum were intact. A second degree perineal laceration and bilateral labial lacerations were repaired in the normal standard fashion. Hemostasis obtained with dilute pitocin and fundal massage. Apgars were 8/9. Mother and baby doing well at the end of the delivery. [facility] [place]aginal Delivery Charge Delivery Type Details: and 2nd Degree LAC (with bilateral labial tears)
[2024-05-24] MEDS ORDERED: HYDROCORTISONE ACETATE 25 MG SUPP PR PRN (23:46)
[2024-05-24] MEDS ORDERED: DIPHTHER/TETAN/PERTUS Vaccine (Tdap, Adol/Adult) 0.5mL IM ONE (23:46)
[2024-05-24] MEDS ORDERED: oxyCODONE/ACETAMINOPHEN 5mg/325mg TAB PO PRN (23:46)
[2024-05-24] MEDS ORDERED: FAMOTIDINE 40 MG TABLET PO PRN (23:46)
[2024-05-24] MEDS ORDERED: BENZOCAINE 20% SPRY 85 APPLN/85 GM CAN EXT PRN (23:46)
[2024-05-25] MEDS: IBUPROFEN 600 MG TAB PO PRN (02:43)
[2024-05-25 05:51] LABS: Hematocrit (blood only) 34.7 % (37.0-47.0); Hemoglobin 11.4 g/dl (12.0-16.0)
[2024-05-25] MEDS: PANTOprazole 40 MG TAB PO SCH (06:17)
--- NOTE | 2024-05-25 06:55 | Obstetrical Progress Note ---
Date of Service May 25, 2024 Assessment & Plan (1) Encounter for assessment: Plan: Patient is PPD 1 s/p and doing well - Eating well, voiding well, ambulating well - vitals reviewed and within normal limits - pain well controlled with analgesics - OOB, ambulation, diet progression as tolerated - Blood type: A+, GBS pos, rubella immune - Plan to discharge tomorrow - After discharge, 6 week follow up with OB Admission and Anticipated Discharge Date Admission Date: May 24, 2024 Supervising Physician Co-Signing Physician Notes Resident Physician Supervision Note: I interviewed and examined the patient. Discussed with Dr. Dr. Riley and agree with findings and plan as documented in the note. Any exceptions or clarifications are listed here: Doing well ppd 1. routine care. Documented By: Sonia Martinez MD, FACOG Subjective 33 yo post- day 1 s/p Ambulation: ambulating normally Voiding: no voiding problems Passing Gas:: Yes Diet Tolerance:: regular diet Lochia:: Small Feeding Type:: breast feeding Current Pain Level: increased to 7-8/10 overnight, but has come down to 3/10 this morning Resting comfortably this AM in NAD. Denies SANCHES, CP, SOB, N/V/D, LE pain/swelling. Physical Exam Physical Exam: General: patient resting comfortably, NAD, non-toxic in appearance, answers questions appropriately. Skin: warm, dry, intact HEENT: NC/AT, anicteric sclera, conjunctiva without injection, moist mucus membranes. Heart: +S1/S2, regular, no m/r/g Lungs: equal air entry bilaterally, no rales/rhonchi/wheezes Abd: +BS, soft, NT/ND, uterine fundus firm at umbilicus Ext: warm, no clubbing/cyanosis or edema, Leydi's neg. Neuro: nonfocal, speech intact, no facial droop, moving all extremities. Results & Data Vital Signs (Past 12 Hours) Vital Signs Temp Pulse Pulse Resp BP BP Pulse Ox 05/25/24 03:15 36.8 C 86 18 130/77 98 05/25/24 00:20 37.1 C 99 H 18 124/86 96 05/25/24 00:07 104 H 128/90 05/25/24 00:03 107 H 133/91 05/25/24 00:00 18 05/24/24 23:47 100 H 132/82 05/24/24 23:32 97 H 123/76 05/24/24 23:30 18 05/24/24 23:17 91 H 122/84 05/24/24 23:03 98 H 121/63 05/24/24 23:00 18 05/24/24 22:48 95 H 141/76 H 05/24/24 22:45 36.8 C 18 05/24/24 22:33 100 H 133/63 05/24/24 22:30 18 05/24/24 22:18 102 H 149/65 H 05/24/24 22:15 18 05/24/24 22:07 103 H 96 05/24/24 22:03 115 H 142/65 H 05/24/24 22:02 111 H 92 05/24/24 22:00 18 05/24/24 21:57 118 H 97 05/24/24 21:53 113 H 94 05/24/24 21:52 111 H 97 05/24/24 21:50 116 H 142/88 H 05/24/24 21:47 123 H 97 05/24/24 21:42 98 05/24/24 21:42 133 H 05/24/24 21:42 142 H 93 05/24/24 21:37 112 H 96 05/24/24 21:32 123 H 96 05/24/24 21:30 125 H 94 05/24/24 21:27 106 H 97 05/24/24 21:25 108 H 94 05/24/24 21:22 121 H 96 05/24/24 21:17 110 H 97 05/24/24 21:14 129 H 94 05/24/24 21:12 137 H 96 05/24/24 21:07 106 H 96 05/24/24 21:02 106 H 94 05/24/24 20:57 130 H 96 05/24/24 20:52 106 H 98 05/24/24 20:47 109 H 98 05/24/24 20:43 120 H 93 05/24/24 20:42 109 H 99 05/24/24 20:37 139 H 97 05/24/24 20:32 121 H 98 05/24/24 20:27 102 H 98 05/24/24 20:22 99 H 98 05/24/24 20:17 123 H 98 05/24/24 20:12 101 H 99 05/24/24 20:09 117 H 128/76 05/24/24 20:07 116 H 97 05/24/24 20:02 109 H 99 05/24/24 19:57 100 H 98 05/24/24 19:52 87 105/74 97 05/24/24 19:50 87 94 05/24/24 19:47 88 97 05/24/24 19:42 94 H 96 05/24/24 19:38 86 120/78 05/24/24 19:37 88 98 05/24/24 19:32 90 97 05/24/24 19:27 94 H 97 05/24/24 19:22 90 122/81 97 05/24/24 19:17 91 H 98 05/24/24 19:12 36.8 C 18 05/24/24 19:12 90 98 05/24/24 19:08 87 127/83 05/24/24 19:07 87 99 05/24/24 19:06 86 128/85 05/24/24 19:02 93 H 99 05/24/24 19:00 18 05/24/24 19:00 18 05/24/24 18:57 87 100 05/24/24 18:56 95 H 89 L 05/24/24 18:52 87 127/84 100 O2 Del Method 05/25/24 03:15 Room Air 05/25/24 00:20 05/25/24 00:07 05/25/24 00:03 05/25/24 00:00 05/24/24 23:47 05/24/24 23:32 05/24/24 23:30 05/24/24 23:17 05/24/24 23:03 05/24/24 23:00 05/24/24 22:48 05/24/24 22:45 05/24/24 22:33 05/24/24 22:30 05/24/24 22:18 05/24/24 22:15 05/24/24 22:07 05/24/24 22:03 05/24/24 22:02 05/24/24 22:00 05/24/24 21:57 05/24/24 21:53 05/24/24 21:52 05/24/24 21:50 05/24/24 21:47 05/24/24 21:42 05/24/24 21:42 05/24/24 21:42 05/24/24 21:37 05/24/24 21:32 05/24/24 21:30 05/24/24 21:27 05/24/24 21:25 05/24/24 21:22 05/24/24 21:17 05/24/24 21:14 05/24/24 21:12 05/24/24 21:07 05/24/24 21:02 05/24/24 20:57 05/24/24 20:52 05/24/24 20:47 05/24/24 20:43 05/24/24 20:42 05/24/24 20:37 05/24/24 20:32 05/24/24 20:27 05/24/24 20:22 05/24/24 20:17 05/24/24 20:12 05/24/24 20:09 05/24/24 20:07 05/24/24 20:02 05/24/24 19:57 05/24/24 19:52 05/24/24 19:50 05/24/24 19:47 05/24/24 19:42 05/24/24 19:38 05/24/24 19:37 05/24/24 19:32 05/24/24 19:27 05/24/24 19:22 05/24/24 19:17 05/24/24 19:12 05/24/24 19:12 05/24/24 19:08 05/24/24 19:07 05/24/24 19:06 05/24/24 19:02 05/24/24 19:00 05/24/24 19:00 05/24/24 18:57 05/24/24 18:56 05/24/24 18:52 Resident Activity Tracking Resident Involvement: Resident Care Provided Care Provided: OB Delivery (1) Encounter for assessment visit type: exam and care immediately after delivery Qualified Code(s): Z39.0 - Encounter for care and examination of mother immediately after delivery
--- NOTE | 2024-05-25 07:24 | Anesthesia Procedure Note ---
Date of Service May 25, 2024 Anesthesia Post Epidural Note Vital Signs Vital Signs: Temp Pulse Resp BP Pulse Ox O2 Del Method 36.8 C 86 18 130/77 98 Room Air 05/25/24 03:15 05/25/24 03:15 05/25/24 03:15 05/25/24 03:15 05/25/24 03:15 05/25/24 03:15 Pain Intensity Bilateral Perineal: Pain Intensity: 5 Notes Mental Status: alert / awake / arousable and participated in evaluation Nausea / Vomiting: adequately controlled Pain: adequately controlled Airway Patency, RR, SpO2: stable & adequate BP & HR: stable & adequate Hydration State: stable & adequate Neuraxial Anesthesia: was administered and sensory block resolved Anesthetic Complications: no major complications apparent and Pt Satisfied with anesthetic care Epidural: Removed without complications and With tip intact
[2024-05-25] MEDS: PRENATAL VITAMIN 1 TAB PO SCH (08:02)
[2024-05-25] MEDS: DOCUSATE SODIUM 100 MG CAP PO SCH (08:02)
[2024-05-25] MEDS: busPIRone 5 MG TAB PO SCH (08:05)
[2024-05-25] MEDS: bisacodyL 5 MG TABEC PO SCH (20:09)
[2024-05-26] MEDS ORDERED: bisacodyL 10 MG SUPP PR PRN
[2024-05-26 01:17] VITALS: TEMP 98.4; O2SAT 98
--- NOTE | 2024-05-26 06:53 | Obstetrical Progress Note ---
Date of Service May 26, 2024 Assessment & Plan (1) Encounter for assessment: Plan: Patient is PPD 2 s/p and doing well - Eating well, voiding well, ambulating well - vitals reviewed and within normal limits - pain well controlled with analgesics - OOB, ambulation, diet progression as tolerated - Blood type: A+, GBS pos, rubella immune - Plan to discharge today - After discharge, 6 week follow up with OB Admission and Anticipated Discharge Date Admission Date: May 24, 2024 Supervising Physician Co-Signing Physician Notes Resident Physician Supervision Note: I interviewed and examined the patient. Discussed with Dr. Dr. Riley and agree with findings and plan as documented in the note. Any exceptions or clarifications are listed here: Doing well ppd 2. routine care. Documented By: good Gonsalez 33 yo post- day 2 s/p Ambulation: ambulating normally Voiding: no voiding problems Passing Gas:: Yes Diet Tolerance:: regular diet Lochia:: Small Feeding Type:: breast feeding and bottle feeding Current Pain Level: 3-4/10 Resting comfortably this AM in NAD. Denies SANCHES, CP, SOB, N/V/D, LE pain/swelling. Physical Exam Physical Exam: General: patient resting comfortably, NAD, non-toxic in appearance, answers questions appropriately. Skin: warm, dry, intact HEENT: NC/AT, anicteric sclera, conjunctiva without injection, moist mucus membranes. Heart: +S1/S2, regular, no m/r/g Lungs: equal air entry bilaterally, no rales/rhonchi/wheezes Abd: +BS, soft, NT/ND, uterine fundus firm at umbilicus Ext: warm, no clubbing/cyanosis or edema, Leydi's neg. Neuro: nonfocal, speech intact, no facial droop, moving all extremities. Results & Data Vital Signs (Past 12 Hours) Vital Signs Temp Pulse Resp BP Pulse Ox O2 Del Method 05/26/24 00:55 36.9 C 85 18 123/80 98 Room Air 05/25/24 19:35 36.5 C 96 H 18 123/84 100 Room Air Resident Activity Tracking Resident Involvement: Resident Care Provided Care Provided: OB Delivery (1) Encounter for assessment visit type: exam and care immediately after delivery Qualified Code(s): Z39.0 - Encounter for care and examination of mother immediately after delivery
[2024-05-26 09:43] VITALS: BP 120/79; PULSE 83
[2024-05-26] MEDS: INFLUENZA VACC TS2024-25(6m+)/PF (IIV3) 0.5mL Syr IM ONE (11:22)
[2024-05-27 15:32] LABS: Marijuana Quant, GCMS Urine 112 ng/mL (<5)
== END 2024-05-26 14:40 | disposition home or self-care (01) | DRG 807 ==
LOC: OPB 03:19 → 4S1 03:21 → 4S3 05-25 00:41 → 4E2 05-25 00:43